=== PATIENT | male | born 1985 | race Caucasian/White ===

== ENCOUNTER → 2016-08-27 | Outpatient (CLI) | payer OTHER ==
--- NOTE | 2016-08-27 16:33 | XR ---
Right RIBS HISTORY: Right rib pain after lifting injury 4 views of the right RIBS There is no displaced rib fracture. No pneumothorax or pleural effusion. There may be a spinal curvat ure. IMPRESSION: No acute abnormality. If occult rib fractures are suspected, bone scan may be of benefit.
== END ==
LOC: RADXRMAIN 15:23
PROVIDERS: ATTEND Nurse Practitioner Adult Health
DX: R07.81 Pleurodynia (principal)